=== PATIENT | female | born 1940 ===

== ENCOUNTER → 2019-07-12 | Day surgery (SDC) | payer OTHER ==
[~2019-07-12] MED LIST: ADULT ASPIRIN81 MG PO; MACROBID 100 M100 MG PO; SIMVASTATIN80 MG PO; TOPROL XL25 M1 PO; ULTRACET PO
== END | disposition home or self-care (01) ==
LOC: ADM 07-03 13:45 → CIR.AMB 07-11 13:45
DX: N81.3 Complete uterovaginal prolapse (principal)